=== PATIENT | female | born 2000 | race Caucasian/White ===

== ENCOUNTER 2022-06-28 10:43 | Day surgery (SDC) | payer BC, OTHER ==
[2022-06-27 08:22] VITALS: BMI 45.6
[~2022-06-28 10:43] MED LIST: DEXAMETHASONE SOD PHOSPHATE 4 MG/ML 1 ML VIAL IV ONE; LACTATED RINGERS 1,000 ML IV SCH; MIDAZOLAM 2 MG/2 ML VIAL IV PRN; ONDANSETRON 4 MG/2 ML VIAL IVP ONE; SCOPOLAMINE 1 MG/72 HR PATCH TRANSDERM ONE; ceFAZolin 3 GM in SODIUM CHLORIDE 0.9% 100 ML IVPB PRN
[2022-06-28] MEDS ORDERED: MIDAZOLAM 2 MG/2 ML VIAL IVP ONE (12:45)
[2022-06-28] MEDS ORDERED: fentaNYL (PF) 50 MCG/ML 2 ML AMP IVP ONE (12:45)
[2022-06-28] MEDS ORDERED: DEXAMETHASONE SOD PHOSPHATE 10 MG/ML 1 ML VIAL ONE (12:51)
[2022-06-28] MEDS ORDERED: LIDOCAINE 2% INJ 20 MG/ML (2 ML VIAL) ONE (12:51)
[2022-06-28] MEDS ORDERED: MIDAZOLAM 2 MG/2 ML VIAL ONE (12:51)
[2022-06-28] MEDS ORDERED: ROCURONIUM 10 MG/ML (5 ML VIAL) IV ONE (12:51)
[2022-06-28] MEDS ORDERED: fentaNYL (PF) 50 MCG/ML 2 ML AMP ONE (12:51)
[2022-06-28] MEDS ORDERED: SUCCINYLCHOLINE CHLORIDE 200 MG/10 ML VIAL IV ONE (12:51)
[2022-06-28] MEDS ORDERED: ROPIVACAINE 5 MG/ML 30 ML VIAL ONE (12:51)
[2022-06-28] MEDS ORDERED: HYDROmorphone (PF) 1 MG/ML ONE (12:51)
[2022-06-28] MEDS ORDERED: PHENYLEPHRINE-0.9% NACL SYG 1,000 MCG/10 ML SYRINGE ONE (12:51)
[2022-06-28] MEDS ORDERED: PROPOFOL 10 MG/ML 20 ML VIAL IV ONE (12:51)
[2022-06-28] MEDS ORDERED: SODIUM CHLORIDE 0.9% (PF) 10 ML VIAL ONE (12:51)
[2022-06-28] MEDS ORDERED: ALBUTEROL HFA INHALER INHALATION ONE (12:51)
[2022-06-28] MEDS ORDERED: ceFAZolin 1,000 MG in SODIUM CHLORIDE 0.9% 1,000 ML IRRIGATION ONE (13:00)
--- NOTE | 2022-06-28 14:17 | P.ANPRN ---
Procedure Note - Anesthesia - Nerve Block Performed Left Popliteal Single Time Out Performed: Yes (1244) Date of Procedure: 06/28/22 Procedure Start Time: 12:45 Procedure Stop Time: 12:51 Location of Patient: PreOp Indication: Acute Post-Operative Pain, Requested by Surgeon Specifically requested for management of pain by DrFelipe: Gennaro Miller Sedation Type: Sedate with meaningful contact maintained Preparation: Sterile Prep Position: Supine Catheter: None Needle Types: Pajunk Needle Gauge: 21 Ultrasound used to visualize needle placement: Yes Ultrasound used to observe medication spread: Yes Injectate: 0.5% Ropivacaine (see comment for volume) (15cc + 15cc nacl pf) Blood Aspirated: No Pain Paresthesia on Injection Noted: No Resistance on Injection: Normal Image Stored and Saved: Yes Events: Uneventful and Well Tolerated
--- NOTE | 2022-06-28 14:18 | P.ANPRN ---
Procedure Note - Anesthesia - Nerve Block Performed Left Adductor Canal Single Time Out Performed: Yes (1244) Date of Procedure: 06/28/22 Procedure Start Time: 12:52 Procedure Stop Time: 12:54 Location of Patient: PreOp Indication: Acute Post-Operative Pain, Requested by Surgeon Specifically requested for management of pain by DrFelipe: Gennaro Miller Sedation Type: Sedate with meaningful contact maintained Preparation: Sterile Prep Position: Supine Catheter: None Needle Types: Pajunk Needle Gauge: 21 Ultrasound used to visualize needle placement: Yes Ultrasound used to observe medication spread: Yes Injectate: 0.5% Ropivacaine (see comment for volume) (15cc + 15cc nacl pf) Blood Aspirated: No Pain Paresthesia on Injection Noted: No Resistance on Injection: Normal Image Stored and Saved: Yes Events: Uneventful and Well Tolerated
[2022-06-28] MEDS ORDERED: LACTATED RINGERS 1,000 ML IV ONE (14:42)
[2022-06-28 15:20] VITALS: TEMP 97.5
[2022-06-28] MEDS: HYDROmorphone 0.5 MG/0.5 ML SYRINGE IVP PRN ×4 (15:25→15:52)
[2022-06-28 15:27] VITALS: RESP 16
[2022-06-28 16:48] VITALS: BP 101/63; PULSE 99
--- NOTE | 2022-07-04 19:15 | OP ---
OPERATIVE REPORT PREOPERATIVE DIAGNOSES: 1. Left ankle instability. 2. Cyst of left talus. POSTOPERATIVE DIAGNOSES: 1. Left ankle instability. 2. Cyst of left talus. PROCEDURES PERFORMED: 1. Secondary repair of left lateral ankle ligaments. 2. Repair of talar cyst with allograft, left ankle. ANESTHESIA: General with preoperative nerve block. HEMOSTASIS: Left thigh tourniquet at 250 mmHg. ESTIMATED BLOOD LOSS: Minimal. MATERIALS: 1 Arthrex InternalBrace, 2 Arthrex FiberTak anchors, and Arthrex BioCartilage. INJECTABLES: None. SPECIMENS: None. COMPLICATIONS: None. DESCRIPTION OF PROCEDURE: Prior to the patient being brought to the operating room, Anesthesia administered a nerve block on the left lower extremity. The patient was then brought into the operating room and placed on the table in supine position. Time-out was taken to confirm correct patient identifiers, correct site of surgery, and correct procedure. When all staff in the room were in agreement with the time-out, the patient was induced and placed under general anesthesia. A tourniquet was placed on the left thigh and then a wedge underneath the left hip to internally rotate the left leg. The left leg was then prepped and draped in usual manner. The leg was exsanguinated, and the tourniquet was inflated to 250 mmHg. Attention was directed over the anterolateral ankle, where a curvilinear incision was made just anterior to the lateral malleolus. It was deepened down to the subcutaneous tissue careful to identify, avoid, and retract any neurovascular structures and cauterize any bleeding vessels. Blunt dissection was then continued through the subcutaneous layer down to the lateral ankle joint capsule. The capsular and ligamentous structures were incised off the anterior surface of the lateral malleolus and reflected distally, and a small flap of soft tissue off the periosteum reflected proximally. A rongeur was used to remove the cortical bone on the anterior surface of the lateral malleolus, which would facilitate ligament reattachment with healing, and all the rough edges were smoothed with a bone rasp. Next, a 3.4 mm drill hole was made in the lateral body of the talus just anterior to the articular surface. It was done at the junction of the neck and the body and angled in a way to avoid the subtalar and ankle joints. Once drilling was completed, the hole was tapped, and then the 4.75 SwiveLock anchor with suture inserted down to proper depth. The suture was then set aside. The same drill bit was used to make the drill hole for the 3.5 mm drill bit into the lateral malleolus. Then, guidewires were used to create the pilot boat deckhand holes for the FiberTak anchors. One was placed superior to the larger drill hole and one inferior. The anchor was inserted through the guide and then impacted to proper depth. The guide and area cleaner were removed, and then tension placed on the suture to lock it in place. The wound was then thoroughly irrigated with antibiotic saline. The FiberTak suture was then used to oversew the lateral ankle ligament structures onto the lateral malleolus while holding the ankle maximally dorsiflexed and everted. Then, the 2 arms of the suture from the 4.75 anchor were placed to the 3.5 mm anchor, which was then aligned with a drill hole in the lateral malleolus utilizing described tensioning techniques and holding the ankle in neutral, inversion, eversion, and mild gravity equinus. The anchor was inserted and advanced locking the suture in place. The ankle was tested for stability, where anterior drawer and inversion stress were negative. Suture from the FiberTaks was then used to sew the periosteal flap over the repair site in a [id number] fashion. All suture was then cut, and the wound was irrigated with antibiotic saline. Subcutaneous was closed with #4-0 Monocryl. Skin was closed with #3-0 Stratafix in a running subcuticular manner. The wedge from underneath the left hip was removed, so that the leg could externally rotate, and then attention was directed to the anteromedial aspect of the ankle, where an incision was made over the medial gutter. It was deepened down to the subcutaneous tissue careful to identify, avoid, and retract all neurovascular structures and cauterize any bleeding vessels. The saphenous vein was identified. Branches were cauterized and were carefully retracted, and then the incision was made to the anteromedial ankle joint capsule to expose the medial shoulder of the talus. Guidewires were placed into the tibia and the talus, and then a distractor was applied over the wires and used to distract the ankle joint so that the lesion could be identified. The cartilage was probed on the medial talar dome and shoulder, and the abnormal areas of tissue were very soft, and those were sharply removed with a curette until all the cartilaginous areas were normal and firmly adhered. Then, a small bur was used to fenestrate the bone and enter the cyst to remove all the abnormal tissue and expose bleeding medullary bone to facilitate the implementation of the graft. Once completed, the wound was irrigated thoroughly with antibiotic saline. The Arthrex BioCartilage was reconstituted and then placed within the defect and then smoothed and contoured to match the surface of the talus. Fibrin glue was then applied over the graft, which then locked it in place. It was held in place for 5 minutes without a movement of the ankle. Once that was completed, the wound was irrigated, and then the capsule was closed with 0 Vicryl. The subcutaneous was closed with #4-0 Monocryl. Skin was closed with #3-0 Stratafix in a running subcuticular manner. Dermal glue was applied over both incisions, and once dried, Steri-Strips were placed across the incision and then an Arthrex JumpStart dressing and a bulky dry dressing. The tourniquet was released. Capillary refill returned to all digits on the left foot. The patient was then placed in a well-padded, well-molded plaster posterior mold/sugar-tong splint. The ankle was held in neutral position until the splint was dry. At that point, the anesthesia was reversed, and the patient was taken to Recovery with vital signs stable. MMMANUELAL / IJN: [id number] /
== END 2022-06-28 17:24 | disposition home or self-care (01) ==
LOC: OR 10:43
PROVIDERS: ATTEND Podiatrist
DX: M25.372 Other instability, left ankle (principal); M85.672 Other cyst of bone, left ankle and foot; G89.18 Other acute postprocedural pain; M93.272 Osteochondritis dissecans, left ankle and joints of left foot; M19.072 Primary osteoarthritis, left ankle and foot; G40.909 Epilepsy, unspecified, not intractable, without status epilepticus; K21.9 Gastro-esophageal reflux disease without esophagitis; F17.290 Nicotine dependence, other tobacco product, uncomplicated; Z91.040 Latex allergy status; Z80.8 Family history of malignant neoplasm of other organs or systems
CPT/HCPCS: 64447; 81025; 64445; 76942; 27698; 27899; C1713 ×4; C1762; J2250; J0330; J1100 ×2; J0690 ×2; J2405; J3010; J1170 ×2; J2795; J2370; J2704; J2001

== ENCOUNTER 2023-05-14 14:16 | Emergency (ER) | payer OTHER ==
[2023-05-14 14:36] VITALS: RESP 16
[2023-05-14] MEDS ORDERED: AMOXIC-POT CLAV 875MG STARTER PACK 2 TAB BTL PO STA (15:49)
[2023-05-14] MEDS ORDERED: CIPROFLOXACIN-DEXAMETH 0.3-0.1% DROPS 7.5 ML BTL RIGHT EAR STA (15:49)
--- NOTE | 2023-05-14 15:58 | ED ---
ENT HPI - General Chief complaint: ENT Stated complaint: ear pain, loss of hearing RT Time Seen by Provider: 05/14/23 15:38 Source: patient, RN notes reviewed Mode of arrival: ambulatory Limitations: no limitations - History of Present Illness Initial comments: This is a 23-year-old female who presents to the emergency department for right ear pain. States that this started 2 days ago. She went swimming on Friday, and believes that she got water in her ear, and is concerned that it caused an infection. Denies any fevers or drainage from the ears. States that her hearing feels somewhat muffled. Denies any fevers, chills, sore throat, cough, dyspnea, chest pain, palpitations, abdominal pain, nausea, vomiting, diarrhea, back pain, or headaches. MD complaint: ear pain Onset/Timin -: days(s) Location: R ear - Related Data Previous Rx's Medication Instructions Recorded Amoxic-Pot Clav 875-125Mg 1 tab PO Q12HR 10 Days #20 tab 05/14/23 [Augmentin 875-125] Allergies Allergy/AdvReac Type Severity Reaction Status Date / Time latex Allergy Rash/Hives Verified 05/14/23 14:33 Review of Systems ROS Statement: Those systems with pertinent positive or pertinent negative responses have been documented in the HPI. ROS Other: All systems not noted in ROS Statement are negative. Past Medical History Past Medical History: No Reported History Additional Past Medical History / Comment(s): hx left ankle fx >6 times History of Any Multi-Drug Resistant Organisms: None Reported Past Surgical History: Tonsillectomy Past Anesthesia/Blood Transfusion Reactions: No Reported Reaction, Motion Sickness Past Psychological History: Anxiety Smoking Status: Current some day smoker Past Alcohol Use History: Rare Past Drug Use History: Marijuana - Past Family History Mother Family Medical History: Cancer, Thyroid Disorder Additional Family Medical History / Comment(s): thyroid CA General Exam Limitations: no limitations General appearance: alert, in no apparent distress Head exam: Present: atraumatic, normocephalic, normal inspection ENT exam: Present: other (Right TM and canal erythema. Tenderness to palpation of the tragus and with movement of the pinna.) Respiratory exam: Present: normal lung sounds bilaterally. Absent: respiratory distress, wheezes, rales, rhonchi, stridor Cardiovascular Exam: Present: regular rate, normal rhythm, normal heart sounds. Absent: systolic murmur, diastolic murmur, rubs, gallop, clicks Neurological exam: Present: alert, oriented X3, CN II-XII intact Psychiatric exam: Present: normal affect, normal mood Skin exam: Present: warm, dry, intact, normal color. Absent: rash Course Vital Signs 05/14/23 05/14/23 14:34 17:07 Temperature 97.9 F 98.7 F Pulse Rate 96 88 Respiratory 16 16 Rate Blood Pressure 122/79 125/81 O2 Sat by Pulse 96 98 Oximetry Medical Decision Making - Medical Decision Making This is a 23-year-old female presents emergency department for right ear pain. Was pt. sent in by a medical professional or institution? @ -No Did you speak to anyone other than the patient for history? @ -No Did you review nursing and triage notes? @ -Yes, and I agree, it is accurate with regards to the patient's symptoms. Were old charts reviewed? @ -No Differential Diagnosis? @ -Differential Ear Pain: Otitis media, otitis externa, eustachian tube dysfunction, allergic rhinitis, barotrauma, bullous myringitis, this is not meant to be an all-inclusive list. EKG interpreted by me (3pts min.)? @ -Not obtained X-rays interpreted by me (1pt min.)? @ -Not obtained CT interpreted by me (1pt min.)? @ -Not obtained U/S interpreted by me (1pt. min.)? @ -Not obtained What testing was considered but not performed? (CT, X-rays, U/S, labs)? Why? @ -None What meds were considered but not given? Why? @ -None Did you discuss the management of the patient with other professionals? @ -No Did you reconcile home meds? @ -No Was smoking cessation discussed for >3mins.? @ -No Was critical care preformed (if so, how long)? @ -No Were there social determinants of health that impacted care today? How? (Homelessness, low income, unemployed, alcoholism, drug addiction, transportation, low edu. Level, literacy, decrease access to med. care, group home, rehab)? @ -No Was there de-escalation of care discussed even if they declined? (Discuss DNR or withdrawal of care, Hospice)? @ -No What co-morbidities impacted this encounter? (DM, HTN, Smoking, COPD, CAD, Cancer, CVA, Hep., AIDS, mental health diagnosis, sleep apnea, morbid obesity)? @ -None Was patient admitted / discharged? @ -Discharged. Physical examination consistent with otitis media and otitis externa. She was given a bottle of Ciprodex drops in the emergency department and a prescription for Augmentin was provided with dosing instructions reviewed. Advised ibuprofen and Tylenol as needed for pain relief. Undiagnosed new problem with uncertain prognosis? @ -None Drug Therapy requiring intensive monitoring for toxicity (Heparin, Nitro, Insulin, Cardizem)? @ -None Were any procedures done? @ -None Diagnosis/symptom? @ -Otitis media, otitis externa Acute, or Chronic, or Acute on Chronic? @ -Acute Uncomplicated (without systemic symptoms) or Complicated (systemic symptoms)? @ -Uncomplicated Side effects of treatment? @ -None Exacerbation, Progression, or Severe Exacerbation] @ -Not applicable Poses a threat to life or bodily function? @ -No Return precautions reviewed in depth, the patient is instructed to return to the emergency department with any new, worsening, or concerning symptoms. Patient verbalized understanding. This case was discussed in detail with the attending ED physician, Dr. Clarke. Presentation, findings, and treatment plan discussed in detail as well. Disposition Clinical Impression: Right otitis media, Right otitis externa Disposition: HOME SELF-CARE Instructions (If sedation given, give patient instructions): Swimmer's Ear (ED), Ear Infection (ED) Additional Instructions: Return to the emergency department with any new, worsening, or concerning symptoms. Take the oral antibiotic as prescribed for 10 days. Use the Ciprodex drops provided as 4 drops to the right ear twice daily for 7 days. Alternate with Ibuprofen and Tylenol as needed for pain relief. Follow up with your primary care provider in 1-2 days. Prescriptions: Amoxic-Pot Clav 875-125Mg [Augmentin 875-125] 1 tab PO Q12HR 10 Days #20 tab Is patient prescribed a controlled substance at d/c from ED?: No Referrals: Rhett Montoya MD [Primary Care Provider] - 1-2 days
[2023-05-14 17:10] VITALS: BP 125/81; PULSE 88; TEMP 98.7
== END 2023-05-14 17:10 | disposition home or self-care (01) ==
LOC: EC 14:16
DX: H66.91 Otitis media, unspecified, right ear (principal); H60.391 Other infective otitis externa, right ear; Z86.59 Personal history of other mental and behavioral disorders; F17.200 Nicotine dependence, unspecified, uncomplicated; F12.90 Cannabis use, unspecified, uncomplicated; Z91.040 Latex allergy status
CPT/HCPCS: 99282